=== PATIENT | male | born 1950 | race Caucasian/White ===

== ENCOUNTER 2023-02-05 08:33 | Outpatient (CLI) | payer MEDICARE, OTHER ==
[2023-02-05] MEDS ORDERED: Magnevist 469MG/ML 20 ML VIAL ONE ×2 (12:48)
== END 2023-02-05 08:34 | disposition home or self-care (01) ==
LOC: CSHMRI 08:33
PROVIDERS: ATTEND Psychiatry & Neurology Neurology
DX: R10.30 Lower abdominal pain, unspecified (principal); M48.061 Spinal stenosis, lumbar region without neurogenic claudication; M47.816 Spondylosis without myelopathy or radiculopathy, lumbar region; M84.359A Stress fracture, hip, unspecified, initial encounter for fracture; M25.452 Effusion, left hip; M65.9 Synovitis and tenosynovitis, unspecified; M16.11 Unilateral primary osteoarthritis, right hip; M67.854 Other specified disorders of tendon, left hip; S73.192D Other sprain of left hip, subsequent encounter
CPT/HCPCS: 72158; 72197